=== PATIENT | male | born 1950 | race Caucasian/White ===

== ENCOUNTER 2016-08-27 22:29 | Inpatient (IN) | payer OTHER ==
--- NOTE | ~2016-08-27 | DS ---
Discharge Summary [facility] [address] [place]. [address] NAME: JOSE A OBREGON : 50 STATUS : DIS IN PAT#: [id number] AGE: 65 ADM/REG DATE : 08/28/16 MR#: [id number] REPORT SERV DATE: 08/31/16 DICTATED BY: DONIS SHAFFER DATE: 08/31/16 REPORT STATUS : Draft TRANSCRIBED BY: MODL DATE: 08/31/16 ADMISSION DATE: 08/28/2016 DISCHARGE DATE: 08/31/2016 DISCHARGE DIAGNOSES: 1. Traumatic rhabdomyolysis, with initial CPK as high as 20,000. 2. Polypharmacy including Klonopin and Xanax as well as Remeron and possibly some pain medications. 3. Chronic systolic congestive heart failure with ejection fraction of 35%. 4. Hypervolemia during this hospital stay due to IV fluids. 5. Chronic obstructive pulmonary disease. 6. History of lung cancer. 7. Smoking. CONSULTANTS: None. PROCEDURES: None. HOSPITAL COURSE: This is a 65-year-old gentleman who was admitted to the hospital with recurrent falls, that resulted in a traumatic rhabdomyolysis. For details, please refer to excellent H and P dictated by Dr. Dev Payne. In summary, the patient was admitted and was given aggressive IV fluid resuscitation for the traumatic rhabdomyolysis. The patient's CPK was initially as high as 20,000. The patient's rhabdo did improve with aggressive IV fluid resuscitation. However, the patient also does have underlying systolic congestive heart failure and the patient did show evidence of volume overload after two days of fluid resuscitation. The patient was thus transitioned from aggressive IV fluid resuscitation to IV Lasix diuresis, which he tolerated well. The patient did require 2 liters of oxygen support on the third day of hospital stay, but by the fourth day, the patient was able to come off the oxygen with IV Lasix diuresis. The patient's renal function remained stable the entire hospital stay and the patient also remained hemodynamically stable. Due to his frequent falls, the patient was evaluated by Physical Therapy, but he actually passed and the patient is now being discharged home with home health care. As the patient's frequent falls is probably due to polypharmacy including Xanax, Klonopin, and Remeron, the patient was counseled extensively regarding the use of sedatives and the patient understands the risks. The patient used to be on Xanax 2 mg p.o. daily, which will be cut down to 0.5 mg p.o. daily p.r.n. The patient was also counseled extensively regarding smoking cessation. The patient was willing to try to quit smoking and the patient requested nicotine gum and thus prescription was given for nicotine gum also. The patient is now being discharged home in stable condition to continue close outpatient followup. DISPOSITION: Home. DISCHARGE MEDICATIONS: No changes except for decreasing Xanax from 2 mg p.o. daily p.r.n. down to 0.5 mg p.o. daily p.r.n. The patient was also given a prescription for nicotine gum. Discharge Summary [address] [address] NAME: JOSE A OBREGON : 50 STATUS : DIS IN PAT#: [id number] AGE: 65 ADM/REG DATE : 08/28/16 MR#: [id number] REPORT SERV DATE: 08/31/16 DICTATED BY: DONIS SHAFFER DATE: 08/31/16 REPORT STATUS : Draft TRANSCRIBED BY: STELLA DATE: 08/31/16 FOLLOWUP: 1. Please follow up with PCP in the next one to two weeks. 2. The patient will also be followed by home health care. A total of 40 minutes spent in coordinating this patient's discharge today, a lot of which was spent in counseling the patient and family about medication use. DICTATED BY: Donis Shaffer MD Gil/STELLA Donis Shaffer MD / [id number] CC: MD Jordin Gonzalez M.D.
--- NOTE | ~2016-08-27 | HP ---
History And Physical [place] [id number] [facility] [place]. [address] NAME: JOSE A OBREGON : 50 STATUS : ADM IN PAT#: [id number] AGE: 65 ADM/REG DATE : 08/28/16 MR#: [id number] REPORT SERV DATE: 08/28/16 DICTATED BY: CLARA BAKER DATE: 08/28/16 REPORT STATUS : Draft TRANSCRIBED BY: MODL DATE: 08/28/16 DATE OF ADMISSION: 08/28/2016 CHIEF COMPLAINT: A 65-year-old male with recurrent falls, weakness, and encephalopathy. HISTORY OF PRESENTING ILLNESS: The patient's history was obtained through careful interview with the patient and granddaughter, coupled with review of [facility] and [facility] medical records. For several days now, the patient has had increasing weakness and debilitation. He has had about three falls over the last several days and today, his granddaughter found that he could not even stand on his own. For about two days, he has had such a poor appetite there has been essentially no food intake and then today, he had some periods of time, where he actually had lost consciousness and when he was awake, he was extremely encephalopathic, disoriented, incoherent, and irritable, but very lethargic. He has been describing chest discomfort bilaterally, but more pronounced on the right side, a sharp aching quality, exacerbated by breathing, 8/10 severity. REVIEW OF SYSTEMS: Otherwise, 14-point review of systems was obtained and was negative, although could question validity in light of the patient's confusion. PAST MEDICAL HISTORY: 1. COPD. 2. Previous chronic pain management, on narcotics, but apparently he has been taken off his narcotic pain medicine. 3. Anxiety, on multiple benzodiazepines including Klonopin and Xanax. 4. Orthostatic hypotension. 5. 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 Munoz, thought to be in remission now. 6. Cachexia. 7. Coronary artery disease, seen by Dr. Puente, with history of stent placement and multivessel disease on catheterization of the heart in 2013. 8. Colon polyps, seen by Dr. Dukes. 9. Systolic congestive heart failure. Ejection fraction 35% measured in 2010 with moderate mitral regurgitation. 10.Vertigo. PAST SURGICAL HISTORY: 1. Left knee surgery. 2. Left mandibular gland excision. 3. Rectal prolapse surgery. History And Physical [address] [place]. [address] NAME: JOSE A OBREGON : 50 STATUS : ADM IN PAT#: [id number] AGE: 65 ADM/REG DATE : 08/28/16 MR#: [id number] REPORT SERV DATE: 08/28/16 DICTATED BY: CLARA BAKER DATE: 08/28/16 REPORT STATUS : Draft TRANSCRIBED BY: STELLA DATE: 08/28/16 ALLERGIES: PINDOLOL. SOCIAL HISTORY: The patient is a smoker. Does not drink alcohol. Has worked in construction. Lives with a granddaughter. Has three children total. Lives in [place], [place]. FAMILY HISTORY: Heart disease. CURRENT MEDICATIONS: Include albuterol inhaler, Xanax 2 mg p.r.n., Keflex 500 mg p.o. b.i.d. started on 08/24/2016, Klonopin 2 mg at bedtime, Plavix 75 mg p.o. daily, Remeron 15 mg p.o. daily, Crestor 40 mg p.o. daily. PHYSICAL EXAMINATION: VITAL SIGNS: Temperature 98.2, pulse 88, blood pressure 108/65, respiratory rate 16, and O2 saturation 95% on room air. GENERAL: An ill-appearing male, very lethargic. He does arouse and respond to persistent vocal stimuli, but is quite confused. There is no evidence of acute distress though. HEENT: Pupils equal, round, and reactive to light. No conjunctival pallor. No scleral icterus. Nares are patent. Oropharynx is clear of obstruction. Very dry mucous membranes. NECK: Trachea midline. No thyromegaly. LYMPH: No cervical lymphadenopathy. No supraclavicular lymphadenopathy. RESPIRATORY: Clear to auscultation at bases. No wheezes, rales, or rhonchi. Normal respiratory effort. CARDIOVASCULAR: Regular rate and rhythm. No murmurs, rubs, or gallops. No extremity edema is appreciated. ABDOMEN: Soft, nontender, nondistended. Normal bowel sounds auscultated throughout. No hepatosplenomegaly. DERMATOLOGICAL: Warm and dry extremities. No pallor. No cyanosis. There is tenting of the skin to suggest severe dehydration. PSYCHIATRIC: Very lethargic, but he does respond to persistent vocal stimuli. He is not oriented to time, location, or his recent history. He has a flat affect. Irritable mood. LABORATORY DATA: White blood cell count 5.3, hemoglobin 13, hematocrit 36, platelets 199. Sodium 140, potassium 4.0, chloride 109, bicarb 23, BUN 12, creatinine 0.95, glucose 80. CPK elevated at 20,866. Troponin 0.03, albumin 2.9. INR 1.2. Alcohol level negative. AST 271. Urinalysis negative for infection. ABG demonstrates pH 7.41, a PaCO2 of 33, a PaO2 of 66, and bicarb 20. STUDIES: 1. Chest x-ray by my own evaluation shows left rib fracture and COPD changes. 2. EKG by my own evaluation shows sinus rhythm, no major abnormalities. 3. CT scan of the brain without contrast shows no acute intracranial process. ASSESSMENT AND PLAN: 1. Rhabdomyolysis with an excessively elevated CPK of 20,866. Place on IV fluids. Monitor. History And Physical [address] [address] NAME: JOSE A OBREGON : 50 STATUS : ADM IN [facility]#: [id number] AGE: 65 ADM/REG DATE : 08/28/16 MR#: [id number] REPORT SERV DATE: 08/28/16 DICTATED BY: CLARA BAKER DATE: 08/28/16 REPORT STATUS : Draft TRANSCRIBED BY: MODL DATE: 08/28/16 2. Falls and weakness. Obtain a physical therapy evaluation. Noted negative CT scan of the brain. 3. Polypharmacy. We will discontinue Xanax. Decrease dose of Klonopin. Discontinue Remeron. 4. Chronic obstructive pulmonary disease. Place on Duo nebulizers. 5. Chronic systolic congestive heart failure. Ejection fraction 35% with moderate mitral regurgitation. 6. History of lung cancer in 2006, thought to be in remission. No evidence of recurrence on chest x-ray. KPL/MODL Clara Baker M.D. / [id number] CC: MD Jordin Gonzalez M.D.
[~2016-08-27 22:29] MED LIST: ASAB PO; CARDCD240 PO; COREG3 PO; CRESTOR20 MG PO; CRESTOR40 MG PO; FERROUS SULF325 M1 PO; FLORINEF0.1 MG PO; KLONO1 PO; KLONO2 PO; MAGOX4 PO; MCZ25 PO; MEDROLPAK4 PO; NEXIUM40 PO; NITROII30C TOP; NITROSTAT0.4 MG SL; NORCO1 TAB PO; PLAVIX PO; PRIN5 PO; PROTONIX PO; RAN500 PO; REMERON30 MG PO; SPIRIVA INH; VITAMIN B PO; VITC500 PO; XANAX2 MG PO; ZANTAC150 MG PO; ZETIA PO
[2016-08-27] MEDS ORDERED: CRESTOR40 MG PO (23:12)
[2016-08-27] MEDS ORDERED: KLONO2 PO (23:12)
[2016-08-27] MEDS ORDERED: PLAVIX PO (23:12)
[2016-08-27] MEDS ORDERED: REM15 PO (23:13)
[2016-08-27] MEDS ORDERED: X5 PO (23:13)
[2016-08-27] MEDS ORDERED: K500 PO (23:13)
[2016-08-27 23:14] LABS: ALLENS TEST Pos; BE (BASE EXCESS) -3.5 MEQ/L (0 +/- 2.5); CARBOXYHEMOGLOBIN 1.9 % (0-3); HCO3 (ACTUAL BICARBONATE) 20.3 MEQ/L (23-27); HEMOBLOGIN CONTENT 12.5 G/DL (14-18); INSTRUMENT SERIAL # 8087; METHEMOGLOBIN 0.3 % (0-3); O2 CONTENT 15.9 VOL% (18-24); OPERATOR ID 17589; PCO2 (CO2 TENSION) 33 MMHG (35-45); PO2 (O2 TENSION) 66 MMHG (79-93); SAMPLE Arterial; pH 7.41 (7.37-7.43)
[2016-08-27] MEDS ORDERED: VENTOLIN HFA INH (23:14)
[2016-08-28 00:41] LABS: BASOPHILS 0.4 %; BASOPHILS ABSOLUTE 0.02 10/3/uL (0.0-0.16); EOSINOPHILS 1.5 %; EOSINOPHILS ABSOLUTE 0.08 10/3/uL (0.0-0.53); HEMATOCRIT 36.5 % (40.0-51.0); HEMOGLOBIN 12.7 g/dL (13.6-17.8); IMMATURE GRANULOCYTES 0.2 %; IMMATURE GRANULOCYTES ABSOLUTE 0.01 10/3/uL (0.0-0.11); LYMPHOCYTES 20.5 %; LYMPHOCYTES ABSOLUTE 1.08 10/3/uL (0.67-4.30); MEAN CORPUS HGB CONC 34.8 g/dL (32.0-36.0); MEAN CORPUSCULAR HEMOGLOB 30.1 pg (26.0-34.0); MEAN CORPUSCULAR VOLUME 86.5 fL (80-100); MEAN PLATELET VOLUME 8.9 fL (9.2-13.0); MONOCYTES 10.4 %; MONOCYTES ABSOLUTE 0.55 10/3/uL (0.21-1.20); NEUTROPHILS ABSOLUTE 3.53 10/3/uL (2.02-8.40); PLATELET COUNT 199 10/3/uL (150-400); RBC DISTRIBUTION WIDTH 14.6 % (12.0-16.0); RED CELL COUNT 4.22 10/6/uL (4.7-6.1); WHITE BLOOD CELLS 5.3 10/3/uL (4.5-10.5)
[2016-08-28 00:46] LABS: MANUAL DIFF NO %
[2016-08-28 00:53] LABS: INTERNATIONAL NORMAL RATI 1.2 UNITS (-); PARTIAL THROMBO TIME 26.1 SEC (22.5-37.2)
[2016-08-28 01:00] LABS: PROTIME (NOT ORD) 15.1 SEC (12.0-14.5)
[2016-08-28 01:24] LABS: A/G RATIO 0.7 (0.7-1.9); ALBUMIN 2.9 G/DL (3.5-5.0); ALKALINE PHOSPHATASE 80 U/L (45-117); BUN (BLOOD UREA NITROGEN) 12 MG/DL (6-23); CHLORIDE, SERUM 109 MMOL/L (96-112); CREATININE 0.95 MG/DL (0.70-1.30); GFR AFRICAN AMERICAN 97 ML/MIN (>=60); GFR NON AFRICAN AMERICAN 84 ML/MIN (>=60); GLOBULIN 4.4 G/DL (2.5-4.1); GLUCOSE, SERUM 80 MG/DL (60-99); SALICYLATE 2.9 MG/DL (-); SGOT(AST) 271 U/L (5-40); SGPT(ALT) 46 U/L (5-65); SODIUM, SERUM 140 MMOL/L (135-148); TOTAL BILIRUBIN 0.6 MG/DL (0-1.2); TOTAL PROTEIN 7.3 G/DL (6.0-8.5); TROPONIN I 0.03 NG/ML (<0.05)
[2016-08-28 01:29] LABS: CALCIUM, SERUM 8.4 MG/DL (8.5-10.4); CO2 (CARBON DIOXIDE) 23 MMOL/L (24-34)
[2016-08-28 01:30] LABS: ACETAMINOPHEN LEVEL (TYLENOL) < 2.0 MCG/ML (10.0-20.0); ALCOHOL < 10 MG/DL (0)
[2016-08-28 01:53] LABS: ASCORBIC ACID (UR NOT ORDER) NEG (NEG); BILIRUBIN, URINE NEGATIVE (NEG); ER URINALYSIS TAT 0 Hrs 00 Mins; KETONE, URINE NEGATIVE (NEG); LEUKOCYTE ESTERASE(NOT OR NEG (NEG); NITRITE (URINE) NEG (NEG); WBC (NOT ORDERED) (RFLEX) 2 (0-5)
[2016-08-28 02:11] LABS: AMPHETAMINES (NOT ORD) NEG (NEG); BARBITURATES (NOT ORDERED NEG (NEG); BENZODIAZEPINES (NOT ORD) NEG (NEG); CANNABINOIDS (THC) NEG (NEG); COCAINE (NOT ORDERED) NEG (NEG); OPIATES POS (NEG); PHENCYCLIDINE(PCP) NEG (NEG); TRICYCLICS NEG (NEG)
[2016-08-28 02:34] LABS: CPK 20866 U/L (0-200)
[2016-08-28 02:46] LABS: MYOGLOBIN, SERUM 10019 NG/ML (0-85)
[2016-08-28 13:39] LABS: BASOPHILS 0.7 %; BASOPHILS ABSOLUTE 0.03 10/3/uL (0.0-0.16); EOSINOPHILS 4.1 %; EOSINOPHILS ABSOLUTE 0.17 10/3/uL (0.0-0.53); HEMATOCRIT 36.4 % (40.0-51.0); HEMOGLOBIN 12.8 g/dL (13.6-17.8); LYMPHOCYTES 22.1 %; LYMPHOCYTES ABSOLUTE 0.91 10/3/uL (0.67-4.30); MEAN CORPUS HGB CONC 35.2 g/dL (32.0-36.0); MEAN CORPUSCULAR HEMOGLOB 30.3 pg (26.0-34.0); MEAN CORPUSCULAR VOLUME 86.1 fL (80-100); MEAN PLATELET VOLUME 8.6 fL (9.2-13.0); MONOCYTES 5.6 %; MONOCYTES ABSOLUTE 0.23 10/3/uL (0.21-1.20); NEUTROPHILS 67.5 %; NEUTROPHILS ABSOLUTE 2.77 10/3/uL (2.02-8.40); PLATELET COUNT 163 10/3/uL (150-400); RBC DISTRIBUTION WIDTH 14.8 % (12.0-16.0); RED CELL COUNT 4.23 10/6/uL (4.7-6.1); WHITE BLOOD CELLS 4.1 10/3/uL (4.5-10.5)
[2016-08-28 13:40] LABS: MANUAL DIFF NO %
[2016-08-28 13:48] LABS: INTERNATIONAL NORMAL RATI 1.3 UNITS (-); PARTIAL THROMBO TIME 36.7 SEC (22.5-37.2); PROTIME (NOT ORD) 15.7 SEC (12.0-14.5)
[2016-08-28 14:05] LABS: A/G RATIO 0.8 (0.7-1.9); ALBUMIN 2.7 G/DL (3.5-5.0); ALKALINE PHOSPHATASE 73 U/L (45-117); BUN (BLOOD UREA NITROGEN) 9 MG/DL (6-23); CALCIUM, SERUM 7.9 MG/DL (8.5-10.4); CHLORIDE, SERUM 111 MMOL/L (96-112); CO2 (CARBON DIOXIDE) 22 MMOL/L (24-34); CREATININE 0.65 MG/DL (0.70-1.30); GFR AFRICAN AMERICAN 118 ML/MIN (>=60); GFR NON AFRICAN AMERICAN 102 ML/MIN (>=60); GLOBULIN 3.6 G/DL (2.5-4.1); GLUCOSE, SERUM 84 MG/DL (60-99); POTASSIUM, SERUM 3.9 MMOL/L (3.5-5.3); SGPT(ALT) 48 U/L (5-65); SODIUM, SERUM 141 MMOL/L (135-148); TOTAL BILIRUBIN 0.4 MG/DL (0-1.2); TOTAL PROTEIN 6.3 G/DL (6.0-8.5); ULTRASENSITIVE TSH 0.893 MCIU/ML (0.358-3.740)
[2016-08-28 14:06] LABS: SGOT(AST) 281 U/L (5-40)
[2016-08-29 04:53] LABS: BASOPHILS 0.3 %; BASOPHILS ABSOLUTE 0.01 10/3/uL (0.0-0.16); EOSINOPHILS 3.1 %; EOSINOPHILS ABSOLUTE 0.11 10/3/uL (0.0-0.53); HEMOGLOBIN 11.2 g/dL (13.6-17.8); IMMATURE GRANULOCYTES 0.3 %; IMMATURE GRANULOCYTES ABSOLUTE 0.01 10/3/uL (0.0-0.11); LYMPHOCYTES ABSOLUTE 1.04 10/3/uL (0.67-4.30); MEAN CORPUS HGB CONC 35.2 g/dL (32.0-36.0); MEAN CORPUSCULAR HEMOGLOB 29.9 pg (26.0-34.0); MEAN PLATELET VOLUME 8.7 fL (9.2-13.0); MONOCYTES 7.8 %; MONOCYTES ABSOLUTE 0.28 10/3/uL (0.21-1.20); NEUTROPHILS 59.5 %; NEUTROPHILS ABSOLUTE 2.14 10/3/uL (2.02-8.40); PLATELET COUNT 178 10/3/uL (150-400); RBC DISTRIBUTION WIDTH 14.3 % (12.0-16.0); RED CELL COUNT 3.74 10/6/uL (4.7-6.1); WHITE BLOOD CELLS 3.6 10/3/uL (4.5-10.5)
[2016-08-29 04:56] LABS: HEMATOCRIT 31.8 % (40.0-51.0); MANUAL DIFF NO %
[2016-08-29 05:30] LABS: BUN (BLOOD UREA NITROGEN) 7 MG/DL (6-23); CALCIUM, SERUM 8.2 MG/DL (8.5-10.4); CHLORIDE, SERUM 107 MMOL/L (96-112); CO2 (CARBON DIOXIDE) 21 MMOL/L (24-34); CPK 7644 U/L (0-200); CREATININE 0.73 MG/DL (0.70-1.30); GFR AFRICAN AMERICAN 113 ML/MIN (>=60); GFR NON AFRICAN AMERICAN 97 ML/MIN (>=60); GLUCOSE, SERUM 89 MG/DL (60-99); POTASSIUM, SERUM 3.2 MMOL/L (3.5-5.3); SODIUM, SERUM 137 MMOL/L (135-148)
[2016-08-30 04:39] LABS: BASOPHILS 0.3 %; BASOPHILS ABSOLUTE 0.01 10/3/uL (0.0-0.16); EOSINOPHILS ABSOLUTE 0.18 10/3/uL (0.0-0.53); HEMATOCRIT 32.3 % (40.0-51.0); HEMOGLOBIN 11.3 g/dL (13.6-17.8); IMMATURE GRANULOCYTES 0.3 %; IMMATURE GRANULOCYTES ABSOLUTE 0.01 10/3/uL (0.0-0.11); LYMPHOCYTES 40.2 %; LYMPHOCYTES ABSOLUTE 1.44 10/3/uL (0.67-4.30); MEAN CORPUSCULAR HEMOGLOB 29.5 pg (26.0-34.0); MEAN CORPUSCULAR VOLUME 84.3 fL (80-100); MEAN PLATELET VOLUME 8.8 fL (9.2-13.0); MONOCYTES 7.8 %; MONOCYTES ABSOLUTE 0.28 10/3/uL (0.21-1.20); NEUTROPHILS 46.4 %; NEUTROPHILS ABSOLUTE 1.66 10/3/uL (2.02-8.40); PLATELET COUNT 189 10/3/uL (150-400); RBC DISTRIBUTION WIDTH 14.6 % (12.0-16.0); RED CELL COUNT 3.83 10/6/uL (4.7-6.1); WHITE BLOOD CELLS 3.6 10/3/uL (4.5-10.5)
[2016-08-30 04:45] LABS: MANUAL DIFF NO %
[2016-08-30 05:03] LABS: BUN (BLOOD UREA NITROGEN) 8 MG/DL (6-23); CHLORIDE, SERUM 110 MMOL/L (96-112); CO2 (CARBON DIOXIDE) 21 MMOL/L (24-34); CPK 3754 U/L (0-200); CREATININE 0.78 MG/DL (0.70-1.30); GFR AFRICAN AMERICAN 110 ML/MIN (>=60); GFR NON AFRICAN AMERICAN 95 ML/MIN (>=60); POTASSIUM, SERUM 3.5 MMOL/L (3.5-5.3); SODIUM, SERUM 140 MMOL/L (135-148)
[2016-08-30 05:05] LABS: GLUCOSE, SERUM 108 MG/DL (60-99)
[2016-08-31 05:21] LABS: BASOPHILS 0.6 %; BASOPHILS ABSOLUTE 0.03 10/3/uL (0.0-0.16); EOSINOPHILS 5.7 %; EOSINOPHILS ABSOLUTE 0.31 10/3/uL (0.0-0.53); HEMATOCRIT 38.2 % (40.0-51.0); HEMOGLOBIN 13.4 g/dL (13.6-17.8); IMMATURE GRANULOCYTES 0.2 %; IMMATURE GRANULOCYTES ABSOLUTE 0.01 10/3/uL (0.0-0.11); LYMPHOCYTES 25.1 %; LYMPHOCYTES ABSOLUTE 1.36 10/3/uL (0.67-4.30); MANUAL DIFF NO %; MEAN CORPUS HGB CONC 35.1 g/dL (32.0-36.0); MEAN CORPUSCULAR HEMOGLOB 29.8 pg (26.0-34.0); MEAN CORPUSCULAR VOLUME 84.9 fL (80-100); MONOCYTES 6.3 %; MONOCYTES ABSOLUTE 0.34 10/3/uL (0.21-1.20); NEUTROPHILS 62.1 %; NEUTROPHILS ABSOLUTE 3.36 10/3/uL (2.02-8.40); PLATELET COUNT 232 10/3/uL (150-400); RBC DISTRIBUTION WIDTH 14.9 % (12.0-16.0); WHITE BLOOD CELLS 5.4 10/3/uL (4.5-10.5)
[2016-08-31 05:48] LABS: CHLORIDE, SERUM 103 MMOL/L (96-112); CO2 (CARBON DIOXIDE) 24 MMOL/L (24-34); CPK 1688 U/L (0-200); CREATININE 1.03 MG/DL (0.70-1.30); GFR AFRICAN AMERICAN 88 ML/MIN (>=60); GFR NON AFRICAN AMERICAN 76 ML/MIN (>=60); GLUCOSE, SERUM 95 MG/DL (60-99); POTASSIUM, SERUM 3.7 MMOL/L (3.5-5.3); SODIUM, SERUM 134 MMOL/L (135-148)
[2016-08-31 05:51] LABS: BUN (BLOOD UREA NITROGEN) 12 MG/DL (6-23); CALCIUM, SERUM 9.2 MG/DL (8.5-10.4)
[2016-08-31] MEDS ORDERED: NICORETTE ST2 MG PO (11:38)
== END 2016-08-31 13:00 | disposition home health service (06) | DRG 564 ==
LOC: ER 22:29 → 6NO 08-28 02:08
PROVIDERS: Hospitalist; Internal Medicine
DX: T79.6XXA Traumatic ischemia of muscle, initial encounter (principal); G92 Toxic encephalopathy; R64 Cachexia; I50.22 Chronic systolic (congestive) heart failure; W19.XXXA Unspecified fall, initial encounter; J44.9 Chronic obstructive pulmonary disease, unspecified; G89.29 Other chronic pain; F41.9 Anxiety disorder, unspecified; I95.1 Orthostatic hypotension; I34.0 Nonrheumatic mitral (valve) insufficiency; I25.10 Atherosclerotic heart disease of native coronary artery without angina pectoris; Z68.20 Body mass index [BMI] 20.0-20.9, adult; Z86.010 Personal history of colon polyps; Z95.5 Presence of coronary angioplasty implant and graft; Z85.118 Personal history of other malignant neoplasm of bronchus and lung
CPT/HCPCS: 36600; 70450; 71010; 71020; 71111; 73110-RT; 80048; 80053; 80305; 80307; 81001; 82140; 82550; 82805; 83605; 83735; 83874; 84132; 84443; 84484; 85025; 85610; 85730; 87040; 93005; 94640; 97116-GP; 97162-GP; 99285; A9270-GY; G8978-CL-GP; G8979-CJ-GP

== ENCOUNTER 2016-09-05 23:24 | Emergency (ER) | payer OTHER ==
[~2016-09-05 23:24] MED LIST changes: +K500 PO; +NICORETTE ST2 MG PO; +REM15 PO; +VENTOLIN HFA INH; +X5 PO
[2016-09-05 23:54] LABS: BASOPHILS 0.4 %; BASOPHILS ABSOLUTE 0.02 10/3/uL (0.0-0.16); EOSINOPHILS 4.2 %; HEMATOCRIT 34.8 % (40.0-51.0); HEMOGLOBIN 12.2 g/dL (13.6-17.8); IMMATURE GRANULOCYTES 0.2 %; IMMATURE GRANULOCYTES ABSOLUTE 0.01 10/3/uL (0.0-0.11); LYMPHOCYTES 25.3 %; MANUAL DIFF NO %; MEAN CORPUS HGB CONC 35.1 g/dL (32.0-36.0); MEAN CORPUSCULAR HEMOGLOB 30.2 pg (26.0-34.0); MEAN CORPUSCULAR VOLUME 86.1 fL (80-100); MEAN PLATELET VOLUME 8.8 fL (9.2-13.0); MONOCYTES 8.4 %; NEUTROPHILS 61.5 %; NEUTROPHILS ABSOLUTE 2.92 10/3/uL (2.02-8.40); PLATELET COUNT 277 10/3/uL (150-400); RBC DISTRIBUTION WIDTH 14.2 % (12.0-16.0); RED CELL COUNT 4.04 10/6/uL (4.7-6.1); WHITE BLOOD CELLS 4.8 10/3/uL (4.5-10.5)
[2016-09-06 00:07] LABS: ASCORBIC ACID (UR NOT ORDER) NEG (NEG); BILIRUBIN, URINE NEGATIVE (NEG); ER URINALYSIS TAT 0 Hrs 09 Mins; KETONE, URINE NEGATIVE (NEG); LEUKOCYTE ESTERASE(NOT OR NEG (NEG); NITRITE (URINE) NEG (NEG); WBC (NOT ORDERED) (RFLEX) < 1 (0-5)
[2016-09-06 00:09] LABS: INTERNATIONAL NORMAL RATI 1.2 UNITS (-); PARTIAL THROMBO TIME 36.4 SEC (22.5-37.2)
[2016-09-06 00:10] LABS: CALCIUM, SERUM 9.4 MG/DL (8.5-10.4); CHEST PAIN PROFILE TAT 0 Hrs 20 Mins; CHLORIDE, SERUM 104 MMOL/L (96-112); CREATININE 0.95 MG/DL (0.70-1.30); GFR AFRICAN AMERICAN 97 ML/MIN (>=60); GFR NON AFRICAN AMERICAN 84 ML/MIN (>=60); GLUCOSE, SERUM 102 MG/DL (60-99); POTASSIUM, SERUM 3.5 MMOL/L (3.5-5.3); SODIUM, SERUM 138 MMOL/L (135-148); TROPONIN I <0.02 NG/ML (<0.05)
[2016-09-06 00:11] LABS: BUN (BLOOD UREA NITROGEN) 17 MG/DL (6-23); CO2 (CARBON DIOXIDE) 29 MMOL/L (24-34); CPK 123 U/L (0-200)
== END 2016-09-06 02:32 | disposition home or self-care (01) ==
LOC: ER 23:24
PROVIDERS: Emergency Medicine
PROC: 0T9B70Z Drainage of Bladder with Drainage Device, Via Natural or Artificial Opening (ICD-10-PCS; principal; 2016-09-05)
DX: R53.1 Weakness (principal); R33.9 Retention of urine, unspecified; J44.9 Chronic obstructive pulmonary disease, unspecified; I50.9 Heart failure, unspecified; F41.9 Anxiety disorder, unspecified; I25.10 Atherosclerotic heart disease of native coronary artery without angina pectoris; G25.81 Restless legs syndrome; F17.200 Nicotine dependence, unspecified, uncomplicated; Z95.5 Presence of coronary angioplasty implant and graft; Z85.118 Personal history of other malignant neoplasm of bronchus and lung; Z88.8 Allergy status to other drugs, medicaments and biological substances; Z79.899 Other long term (current) drug therapy
CPT/HCPCS: 71010; 80048; 81001; 82550; 83735; 84484; 85025; 85610; 85730; 99285